=== PATIENT | female | born 1985 | race Caucasian/White ===

== ENCOUNTER 2017-03-02 19:40 | Inpatient (IN) | payer OTHER ==
--- NOTE | ~2017-03-02 | PN ---
Unit #: [id number] #: [id number] Patient: CALI ALLEN [id number] [facility] [address] [place] [address] [id number] I MR#: [id number] NAME: CALI ALLEN ROOM: P130 Age: 31 Sex: F Admission Date: 03/02/2017 : 1985 Attending Physician: Kb Martin M.D. Admitting Physician: Kb Martin M.D. Primary Care Physician: Generic Doctor Not In System [facility] PROGRESS NOTES DATE 03/10/2017 DISCUSSION The patient is significantly improved. She is bright, euthymic. Her p.o. intake has improved and she denies any psychotic symptoms. I have discussed today with the patient the possible etiology of her recent symptoms i.e. steroid or substance induced versus first onset of bipolar disorder and have spoken with her about the importance of continued medication and psychiatric followup following discharge. The patient is agreeable and we will look to discharge tomorrow should she sustain progress. Dictated by... Kb Martin M.D. CB/nikolas TD: 03/10/2017 15:14 JOB #: [id number] [facility] PROGRESS NOTES Page 1 of 1 X Kb Martin MD X PROGRESS NOTE
--- NOTE | ~2017-03-02 | PN ---
Unit #: [id number] #: [id number] Patient: CALI ALLEN [id number] [facility] [address] [place] [address] [id number] I MR#: [id number] NAME: CALI ALLEN ROOM: P130 Age: 31 Sex: F Admission Date: 03/02/2017 : 1985 Attending Physician: Kb Martin M.D. Admitting Physician: Kb Martin M.D. Primary Care Physician: Generic Doctor Not In System [facility] PROGRESS NOTES DATE 03/09/2017 DISCUSSION The patient is a bit more verbal today and her p.o. intake has improved. She states that she is "ready to go home." She reports little recollection of events leading to hospitalization. She still exhibits extreme paucity of speech and thought blocking but is at least showing some early signs of improvement and has begun compliance with medication. Dictated by... Kb Martin M.D. CB/nikolas TD: 03/09/2017 15:03 JOB #: [id number] [facility] PROGRESS NOTES Page 1 of 1 X Kb Martin MD X PROGRESS NOTE
--- NOTE | ~2017-03-02 | PN ---
Unit #: [id number] #: [id number] Patient: CALI ALLEN [id number] [facility] [address] [place] [address] [id number] I MR#: [id number] NAME: CALI ALLEN ROOM: P130 Age: 31 Sex: F Admission Date: 03/02/2017 : 1985 Attending Physician: Kb Martin M.D. Admitting Physician: Kb Martin M.D. Primary Care Physician: Generic Doctor Not In System [facility] PROGRESS NOTES DATE 03/04/2017 DISCUSSION The patient appears significantly worse today. She is sitting in the day room staring blankly ahead and refuses to take phone call. She reports feeling very paranoid. We will begin scheduled Zyprexa and at this point my previous feeling that the patient had had a resolving steroid-induced psychosis seemed less and less credible. Dictated by... Kb Martin M.D. CB/bzg TD: 03/04/2017 13:12 JOB #: [id number] [facility] PROGRESS NOTES Page 1 of 1 X Kb Martin MD X PROGRESS NOTE
--- NOTE | ~2017-03-02 | HP ---
Unit #: [id number] #: [id number] Patient: SONAL ALLEN [id number] [place] [address] [id number] I MR#: [id number] NAME: SONAL ALLEN ROOM: P130 Age: 31 Sex: F Admission Date: 03/02/2017 : 1985 Attending Physician: Kb Martin M.D. Admitting Physician: Kb Martin M.D. Primary Care Physician: Generic Doctor Not In System HISTORY AND PHYSICAL HISTORY OF PRESENT ILLNESS Sonal García is a 31 year old admitted to [address] [place] [address] for depression and after an intentional overdose of her "diet pills." She was treated in local emergency room, and when medically stable transfer to [facility] for psychiatric care. PAST MEDICAL HISTORY Obesity. PAST SURGICAL HISTORY Cholecystectomy. ALLERGIES Robaxin, latex. SOCIAL HISTORY Smokes e-cigarettes. Denies alcohol. Admits to using marijuana on occasion. FAMILY HISTORY Medically noncontributory. REVIEW OF SYSTEMS CONSTITUTIONAL: No fever or chills. HEENT: Denies any sore throat, ear pain or runny nose. CARDIOVASCULAR: Denies chest pain, irregular heart rhythm or palpitations. CHEST: Denies shortness of breath or cough. No hemoptysis. GASTROINTESTINAL: Denies nausea, vomiting, diarrhea or chronic constipation. ENDOCRINE: Denies history of increased thirst or urination. No recent significant weight loss or gain. GENITOURINARY: Denies dysuria, frequency, or hematuria. SKIN: Denies any rashes. HEMATOLOGIC: Denies history of increased bleeding or bruising. MUSCULOSKELETAL: Denies any hot, swollen joints. No generalized muscle pain. NEUROLOGIC: Denies problems with vision or speech. No frequent, severe headaches. No numbness, tingling or weakness in any extremities. Denies loss of bladder or bowel control. CURRENT MEDICATIONS 1. Zyprexa 15 mg q.h.s. 2. Zyprexa Zydis 10 mg q. 8 hours p.r.n. Unit #: [id number] #: [id number] Patient: SONAL ALLEN 3. Nicotine patch 14 mg q. day. 4. Singulair 10 mg q. day. 5. Luvox 250 mg q. day. 6. Milk of Magnesia p.r.n. 7. Maalox p.r.n. 8. Tylenol p.r.n. PHYSICAL EXAMINATION GENERAL: Alert, obese. No apparent distress. VITAL SIGNS: Blood pressure 120/86, heart rate 100, respirations 16, and temperature 98.6. WEIGHT: Not recorded. SKIN: Warm and dry without rash or lesion. HEENT: Normocephalic. TMs not viewed. Oral and nasal passages clear. Conjunctivae clear. PERRLA. EOMs intact. NECK: Supple without lymphadenopathy or thyromegaly. HEART: Regular rate and rhythm without murmur. LUNGS: Clear. ABDOMEN: Soft, nontender. : Not done. EXTREMITIES: No evidence of cyanosis, clubbing or edema. Moves all without focal deficit. NEUROLOGICAL: Grossly within normal limits. Cranial Nerves: II: Visual man are intact. III, IV AND : Extraocular movements are intact. Pupils are equal, round and reactive to light. V: Facial sensation is grossly normal. VII: Facial movements and expression are normal. VIII: Auditory acuity grossly intact. IX, X: Uvula is midline. Phonation is normal. XI: Patient shrugs shoulders and turns head normally. XII: Tongue protrudes in the midline. Sensory and Motor Function: Sensory and motor sensation is grossly normal. Motor: moves all extremities well. Coordination: Gait is normal. Deep Tendon Reflexes: Intact. IMPRESSION Psychiatric admission. RECOMMENDATIONS PSYCHIATRIC: Per psychiatrist. MEDICAL: I see no contraindication to participate in this facility's activities. MEDICAL PROGNOSIS Good. MEDICAL CONDITION Stable. Dictated by... Alcides AugustineABeto-Chel. for Tiffany Sandoval/simi TD: 03/04/2017 16:16 Unit #: [id number] #: [id number] Patient: SONAL ALLEN JOB #: [id number] HISTORY AND PHYSICAL Page 1 of 1 X Arleen Culver HISTORY AND PHYSICAL
--- NOTE | ~2017-03-02 | DS ---
Unit #: [id number] #: [id number] Patient: CALI ALLEN [id number] [place] [address] [id number] I MR#: [id number] NAME: CALI ALLEN ROOM: P130 Age: 31 Sex: F Admission Date: 03/02/2017 : 1985 Discharge Date: 03/11/2017 Attending Physician: Kb Martin M.D. DISCHARGE SUMMARY REASON FOR ADMISSION The patient is a 31-year-old single white female, admitted after what appears to have been a steroid-induced psychosis and subsequent overdose. HOSPITAL COURSE The patient was admitted to the [address] [place] [address] unit and placed on suicide precautions. She was begun on Zyprexa 15 mg at bedtime and was continued on Luvox and Singulair. Phentermine was immediately discontinued. There was some confusion during the patient's hospitalization as to whether her symptoms had been induced by substances i.e. her drug screen was positive for amphetamines or was related to a recent course of steroids which the patient had taken after having experienced an allergic reaction to medication. The duration of her symptoms and the fluctuating clinical course led this physician to believe that this probably represented the patient's first bipolar manic episode. Whatever the case, phentermine was of course discontinued. The patient was continued on Luvox which she takes for obsessive-compulsive disorder. The patient required p.r.n. Haldol, Ativan, and Benadryl on 03/05, and for several days went without eating or drinking; however, she seemed to began to show improvement on 03/09/2017. She was more responsive and her p.o. intake improved considerably. By 03/10, the patient was bright, euthymic, and appeared to be emerging from her psychosis. On 03/11, she was sustaining progress and discharge was ordered. FINAL DIAGNOSES Bipolar disorder, most recent episode manic with psychotic symptoms; obsessive-compulsive disorder by history; and asthma. DISPOSITION ON DISCHARGE The patient is discharged home on following medications; Luvox 250 mg daily for OCD, Singulair 10 mg once daily for asthma, Zyprexa 15 mg at bedtime for mood stabilization. No dietary or physical restrictions were placed on the patient at the time of discharge. FOLLOWUP She will follow up through the auspices of the [facility], Department of Psychiatry. At the time of discharge, this physician remains a bit puzzled as to the etiology of the patient's symptoms. There are several potential culprits Unit #: [id number] #: [id number] Patient: CALI ALLEN here including possible organic causes, including her recent exposure to phentermine and corticosteroids, as well as the possibility that she may have actually been exhibiting symptoms consistent with a bipolar manic episode. I will leave to the discretion of her current outpatient providers discontinuation of Luvox or addition of mood stabilizing medication which in future may not be necessary if in fact the cause of her current episode was related to a medication or substance exposure. Dictated by... Kb Martin M.D. CB/amber TD: 03/11/2017 17:17 JOB #: [id number] DISCHARGE SUMMARY Page 1 of 1 X Kb Martin MD X DISCHARGE SUMMARY
--- NOTE | ~2017-03-02 | PN ---
Unit #: [id number] #: [id number] Patient: CALI ALLEN [id number] [facility] [address] [place] [address] [id number] I MR#: [id number] NAME: CALI ALLEN ROOM: P130 Age: 31 Sex: F Admission Date: 03/02/2017 : 1985 Attending Physician: Kb Martin M.D. Admitting Physician: Kb Martin M.D. Primary Care Physician: Frank Doctor Not In System [facility] PROGRESS NOTES DATE 03/05/2017 DISCUSSION The patient is abed resting comfortably today. She had required p.r.n. Haldol, Benadryl and Ativan last evening after she had been "overly familiar" with her female roommate. We have initiated p.o. h.s. Zyprexa as the patient's current symptoms appear to be more serious that had previously thought i.e. not related to her recent steroid exposure. Dictated by... Kb Martin M.D. CB/chace TD: 03/06/2017 03:26 JOB #: [id number] [facility] PROGRESS NOTES Page 1 of 1 X Kb Martin MD PROGRESS NOTE
--- NOTE | ~2017-03-02 | PN ---
Unit #: [id number] #: [id number] Patient: CALI ALLEN [id number] [facility] [address] [place] [address] [id number] I MR#: [id number] NAME: CALI ALLEN ROOM: P130 Age: 31 Sex: F Admission Date: 03/02/2017 : 1985 Attending Physician: Kb Martin M.D. Admitting Physician: Kb Martin M.D. Primary Care Physician: Frank Doctor Not In System [facility] PROGRESS NOTES DATE 03/06/2017 DISCUSSION The patient offers no new complaints today. She is resting comfortably after having again required p.r.n. Zyprexa last evening. Dictated by... Kb Martin M.D. CB/chace TD: 03/06/2017 12:25 JOB #: [id number] [facility] PROGRESS NOTES Page 1 of 1 X Kb Martin MD X PROGRESS NOTE
--- NOTE | ~2017-03-02 | PA ---
Unit #: [id number] #: [id number] Patient: CALI ALLEN [id number] [facility] [address] [place] [address] [id number] MR#: [id number] NAME: CALI ALLEN ROOM: P130 Age: 31 Sex: F Admission Date: 03/02/2017 : 1985 Date of Assessment: 03/03/2017 Attending Physician: Kb Martin M.D. Admitting Physician: Kb Martin M.D. Primary Care Physician: Generic Doctor Not In System PSYCHIATRIC ASSESSMENT IDENTIFYING INFORMATION The patient is a 31-year-old single white female admitted after what appears to have been a sedated induced psychosis and a subsequent overdose. CHIEF COMPLAINT I'm back to +myself. INFORMANT(S) Patient, patient's reliability is fair. HISTORY OF PRESENT ILLNESS The patient is a 31-year-old white female who reports no prior history of psychiatric treatment. Approximately two weeks the patient had a course of steroids for an allergic reaction then began to act in a bizarre fashion culminating in an overdose of apex which the patient had been prescribed for weight loss this led to her hospitalization. The patient is currently contrite of events leading to hospitalization. She reports no current suicidal or homicidal ideation and denies any psychotic symptoms. She reports little recollections to events leading to hospitalization apart from stating that she "showed her ass all over [place]". 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 She resides with her female partner. The patient denies abuse of any psychoactive substances. Her drug screen however was positive for amphetamines. PAST PSYCHIATRIC HISTORY The patient is prescribed Luvox 250 mg daily with a history of obsessive compulsive disorder. PAST MEDICAL HISTORY The patient suffers from asthma and was taking Adipex for weight loss. MEDICATIONS Luvox, Singulair, phentermine. ALLERGIES Latex, Robaxin FAMILY HISTORY Noncontributory SOCIAL HISTORY Unit #: [id number] #: [id number] Patient: CALI ALLEN The patient lives with her partner. She is originally from [place], [place]. She is currently working on her masters degree on-line. She reports no history of illicit substance abuse though her drug screen was positive for amphetamines at the time of admission. MENTAL STATUS EXAMINATION At this time reveals the patient to be a mildly obese white female appearing her stated age. She is in no apparent physical distress at the time of examination. She is awake, alert, and oriented in all spheres. Her mood is euthymic. Her affect congruent. Speech is generally relevant and coherent. There are no gross deficits in memory or cognition noted. Intelligence is judged to be in the average range based on fund of knowledge. The patient is cooperative throughout the interview. She is currently reporting no suicidal or homicidal ideation or any psychotic symptoms. Her judgement and insight appear to be reasonably intact. ASSETS AND LIABILITIES ASSETS: Motivation for change, high level of functioning. LIABILITIES: None noted. DIAGNOSTIC IMPRESSION 1. Delirium due to no physiological condition. 2. Obsessive compulsive disorder. TREATMENT PLAN The patient remains hospitalized for safety and stabilization. We will continue previously prescribed Singulair and Luvox, phentermine has of course been discontinued. It is my feeling that the patient's psychosis was caused either by the phentermine or her exposure to steroids and seems to be resolving nicely at this point. I will leave an order for p.rfunmilayo Welch should the patient experience further psychotic symptoms and we will plan to watch her for at least another couple of days. ESTIMATE LENGTH OF STAY IN THE HOSPITAL Three to four days. Dictated by... Kb Martin M.D. [place]/chace TD: 03/04/2017 05:01 JOB #: [id number] PSYCHIATRIC ASSESSMENT Page 1 of 1 X Kb Martin MD X PSYCHIATRIC ASSESSMENT
--- NOTE | ~2017-03-02 | PN ---
Unit #: [id number] #: [id number] Patient: CALI ALLEN [id number] [facility] [address] [place] [address] [id number] I MR#: [id number] NAME: CALI ALLEN ROOM: P130 Age: 31 Sex: F Admission Date: 03/02/2017 : 1985 Attending Physician: Kb Martin M.D. Admitting Physician: Kb Martin M.D. Primary Care Physician: Frank Doctor Not In System [facility] PROGRESS NOTES DATE 03/08/2017 DISCUSSION The patient remains seclusive to room and is mute during today's attempted interview. She has not been cooperative with staff relating to p.o. medications, refusing all meds, labs, etc. She is also not eating or drinking leading to concerns about potential dehydration. The patient is today again mute during interview, and her behavior cantor does not permit for administration of p.r.n. medication as she has not been violent or threatening in any way. This is clearly a difficult situation, and we will need to watch the patient's hydration status given her refusal to eat or drink. Dictated by... Kb Martin M.D. CB/simi TD: 03/08/2017 12:54 JOB #: [id number] [facility] PROGRESS NOTES Page 1 of 1 X Kb Martin MD X PROGRESS NOTE
--- NOTE | ~2017-03-02 | PN ---
Unit #: [id number] #: [id number] Patient: CALI ALLEN [id number] [facility] [address] [place] [address] [id number] I MR#: [id number] NAME: CALI ALLEN ROOM: P130 Age: 31 Sex: F Admission Date: 03/02/2017 : 1985 Attending Physician: Kb Martin M.D. Admitting Physician: Kb Martin M.D. Primary Care Physician: Frank Doctor Not In System [facility] PROGRESS NOTES DATE 03/07/2017 DISCUSSION The patient is abed and refuses to acknowledge this physician during attempted interview. She has refused medications (1) __ refused to speak with staff or return family's calls. She appears to be significantly decompensated at this point, but unfortunately her behavior does not necessitate administration of any p.r.n. medications. Dictated by... Kb Martin M.D. CB/bzg TD: 03/07/2017 13:43 JOB #: [id number] [facility] PROGRESS NOTES Page 1 of 1 X Kb Martin MD X PROGRESS NOTE
[2017-03-03 13:20] LABS: THYROID STIMULATING HORMONE 3.63 uIU/ml (0.34-5.60)
[2017-03-03 13:27] LABS: FREE THYROXIN (T4) 1.26 ng/dL (0.58-1.64)
== END 2017-03-11 16:51 | disposition home or self-care (01) | DRG 885 ==
LOC: P2S 21:47 → P1S 23:29
PROVIDERS: Specialist
DX: F31.2 Bipolar disorder, current episode manic severe with psychotic features (principal); F17.290 Nicotine dependence, other tobacco product, uncomplicated; F42.9 Obsessive-compulsive disorder, unspecified; Z91.040 Latex allergy status; Z88.8 Allergy status to other drugs, medicaments and biological substances; T50.5X Poisoning by, adverse effect of and underdosing of appetite depressants; Z90.49 Acquired absence of other specified parts of digestive tract; J45.909 Unspecified asthma, uncomplicated
CPT/HCPCS: 84439; 84443; J1200; J1630; J2060